=== PATIENT | female | born 1990 | race Caucasian/White ===

== ENCOUNTER 2016-08-15 15:21 | Emergency (ER) | payer SELFPAY ==
--- NOTE | 2016-08-15 15:44 | ER Document Report ---
ED Medical Screen (RME) - General Chief Complaint: Neck Problem Stated Complaint: POSSIBLE FOREIGN OBJECT IN NECK Mode of Arrival: Ambulatory Information source: Patient Notes: 26 y/o F presents to ED requesting Xray of neck. Pt reports hx of IV drug use and states thinks has broken needle in left side of neck. States incident occurred approximately 6 months ago and has been encarcerated for the last 6 months and was recently released and has not been evaluated for this before. Denies pain, swelling, difficuly breathing or swallowing. I have greeted and performed a rapid initial assessment of this patient. A comprehensive ED assessment and evaluation of the patient, analysis of test results and completion of the medical decision making process will be conducted by additional ED providers. TRAVEL OUTSIDE OF THE [place] IN LAST 30 DAYS: No - Related Data Allergies/Adverse Reactions: Penicillins Allergy (Severe, Verified 06/29/15 10:58) Hives,anaphylaxis Sulfa (Sulfonamide Antibiotics) Allergy (Severe, Verified 06/29/15 10:58) Hives,anaphylaxis Past Medical History Pulmonary Medical History: Reports: Hx Bronchitis Musculoskeltal Medical History: Denies Hx Fibromyalgia, Reports Hx Musculoskeletal Trauma Psychiatric Medical History: Denies: Hx Bipolar Disorder, Hx Depression, Hx Post Traumatic Stress Disorder , Hx Schizophrenia Traumatic Medical History: Reports: Hx Fractures - lt foot sx 2009 Infectious Medical History: Denies: Hx HIV Past Surgical History: Reports: Hx Section, Hx Oral Surgery, Hx Orthopedic Surgery - Left foot surgery - Immunizations Immunizations up to date: Yes Hx Diphtheria, Pertussis, Tetanus Vaccination: Yes Physical Exam - Vital signs Vitals: Temp Pulse Resp BP Pulse Ox 98.1 F 75 16 122/63 96 08/15/16 15:37 08/15/16 15:37 08/15/16 15:37 08/15/16 15:37 08/15/16 15:37 Course - Vital Signs Vital signs: Temp Pulse Resp BP Pulse Ox 98.1 F 75 16 122/63 96 08/15/16 15:37 08/15/16 15:37 08/15/16 15:37 08/15/16 15:37 08/15/16 15:37
--- NOTE | 2016-08-15 17:44 | ER Document Report ---
ED Neck/Back Problem - General Chief Complaint: Neck Problem Stated Complaint: POSSIBLE FOREIGN OBJECT IN NECK Mode of Arrival: Ambulatory Information source: Patient Notes: 26 y/o F presents to ED requesting Xray of neck. Pt reports hx of IV drug use and states thinks has broken needle in left side of neck. States incident occurred approximately 6 months ago and has been encarcerated for the last 6 months and was recently released and has not been evaluated for this before. Reports was evaluated by primary care provider earlier this week and was referred to ED for an x-ray. Denies fever, pain, swelling, redness of breath, difficuly breathing or swallowing. TRAVEL OUTSIDE OF THE [place] IN LAST 30 DAYS: No - HPI Onset: Chronic Pain Level: Denies Recent injury: No Recently seen / treated by doctor: Yes - Related Data Allergies/Adverse Reactions: Penicillins Allergy (Severe, Verified 06/29/15 10:58) Hives,anaphylaxis Sulfa (Sulfonamide Antibiotics) Allergy (Severe, Verified 06/29/15 10:58) Hives,anaphylaxis Past Medical History - General Information source: Patient - Social History Smoking Status: Current Every Day Smoker Frequency of alcohol use: None Drug Abuse: None Lives with: Family Family History: Malignancy Patient has suicidal ideation: No Patient has homicidal ideation: No Pulmonary Medical History: Reports: Hx Bronchitis Renal/ Medical History: Denies: Hx Peritoneal Dialysis Musculoskeltal Medical History: Denies Hx Fibromyalgia, Reports Hx Musculoskeletal Trauma Psychiatric Medical History: Denies: Hx Bipolar Disorder, Hx Depression, Hx Post Traumatic Stress Disorder , Hx Schizophrenia Traumatic Medical History: Reports: Hx Fractures - lt foot sx 2009 Infectious Medical History: Denies: Hx HIV Past Surgical History: Reports: Hx Section, Hx Oral Surgery, Hx Orthopedic Surgery - Left foot surgery - Immunizations Immunizations up to date: Yes Hx Diphtheria, Pertussis, Tetanus Vaccination: Yes Review of Systems - Review of Systems Constitutional: No symptoms reported EENT: See HPI Cardiovascular: No symptoms reported Respiratory: No symptoms reported Gastrointestinal: No symptoms reported Genitourinary: No symptoms reported Female Genitourinary: No symptoms reported Musculoskeletal: No symptoms reported Skin: No symptoms reported Hematologic/Lymphatic: No symptoms reported Neurological/Psychological: No symptoms reported -: Yes All other systems reviewed and negative Physical Exam - Vital signs Vitals: Temp Pulse Resp BP Pulse Ox 98.1 F 75 16 122/63 96 08/15/16 15:37 08/15/16 15:37 08/15/16 15:37 08/15/16 15:37 08/15/16 15:37 Interpretation: Normal - General General appearance: Appears well, Alert In distress: None - HEENT Head: Normocephalic, Atraumatic Eyes: Normal Conjunctiva: Normal Extraocular movements intact: Yes Eyelashes: Normal Pupils: PERRL Ears: Normal External canal: Normal Tympanic membrane: Normal Nasal: Normal Mouth/Lips: Normal Mucous membranes: Normal, Moist Pharynx: Normal. No: Blood in hypopharynx, Erythema, Exudate, Peritonsillar abscess, Post nasal drainage, Retropharyngeal abscess, Tonsillar hypertrophy, Uvular edema, Potential airway comprom., Other Neck: Normal, Other - Superficial old healed skin scar/[place] to bilateral lower neck likely from reported iv drug use. No swelling, crepitus, erythema, warmth, or palpable foreign body.. No: Anterior cervical chain, Posterior cervical chain, Lymphadenopathy, Meningismus, Neck mass, Subcutaneous emphysema - Respiratory Respiratory status: No respiratory distress Chest status: Nontender Breath sounds: Normal - CTAB Chest palpation: Normal - Cardiovascular Rhythm: Regular Heart sounds: Normal auscultation Murmur: No Pulses: Normal: Radial, Posterior tibial, Dorsalis pedis Normal capillary refill: Yes - Abdominal Inspection: Normal Distension: No distension Bowel sounds: Normal Tenderness: Nontender Organomegaly: No organomegaly - Back Back: Normal, Nontender - Extremities General upper extremity: Normal inspection, Nontender, Normal color, Normal ROM , Normal strength, Normal temperature General lower extremity: Normal inspection, Nontender, Normal color, Normal ROM , Normal strength, Normal temperature, Normal weight bearing - Neurological Neuro grossly intact: Yes Cognition: Normal Orientation: AAOx4 Ros[place] Coma Scale Eye Opening: Spontaneous Huntington Coma Scale Verbal: Oriented Huntington Coma Scale Motor: Obeys Commands Huntington Coma Scale Total: 15 Speech: Normal Motor strength normal: LUE, RUE, LLE, RLE Sensory: Normal - Psychological Associated symptoms: Normal affect, Normal mood - Skin Skin Temperature: Warm Skin Moisture: Dry Skin Color: Normal Course - Re-evaluation Re-evalutation: 08/15/16 17:43 She hemodynamically stable, in no distress. X-rays show bilateral lower neck/ supraclavicular region metallic foreign bodies in the resemblance of small gauge needles without any other abnormalities. Patient denies any symptoms or complaints, has no suggestion of acute complication from foreign bodies and appears stable for discharge at this time. Patient states has appointment with primary care provider for follow-up of x-rays in 2 days which she agrees to keep. Home care, follow-up, ED return precautions discussed with patient who verbalized understanding and agrees with plan. - Vital Signs Vital signs: Temp Pulse Resp BP Pulse Ox 98.5 F 78 16 120/69 98 08/15/16 18:05 08/15/16 18:05 08/15/16 18:05 08/15/16 18:05 08/15/16 18:05 - Diagnostic Test Radiology reviewed: Image reviewed, Reports reviewed Discharge - Discharge Clinical Impression: Foreign body of neck, superficial Qualifiers: Encounter type: initial encounter Qualified Code(s): S10.95XA - Superficial foreign body of unspecified part of neck, initial encounter Condition: Stable Disposition: HOME, SELF-CARE Instructions: Retained Subcutaneous Foreign Object ([facility]) Additional Instructions: Keep your appointment and follow-up with your primary care provider in 2 days as discussed. Return to the emergency department for any worsening symptoms or concerns.
[2016-08-15 18:09] VITALS: BP 120/69
== END 2016-08-15 18:10 | disposition home or self-care (01) ==
LOC: ER 15:21
DX: S10.95XA Superficial foreign body of unspecified part of neck, initial encounter (principal); W45.8XXA Other foreign body or object entering through skin, initial encounter; F17.200 Nicotine dependence, unspecified, uncomplicated; Z88.0 Allergy status to penicillin; Z88.2 Allergy status to sulfonamides
CPT/HCPCS: 70360; 99283

== ENCOUNTER 2017-04-16 19:21 | Outpatient (CLI) | payer MEDICAID ==
[2017-04-16] MEDS ORDERED: HYDROXYZINE PAMOATE 50 MG CAPSULE PO ONE (20:00)
[2017-04-16] MEDS ORDERED: HYDROXYZINE PAMOATE 50 MG CAPSULE ONE (20:01)
[2017-04-16] MEDS ORDERED: ACETAMINOPHEN 325 MG TABLET PO ONE (21:08)
[2017-04-16] MEDS ORDERED: CITRIC ACID/SODIUM CITRATE ORAL SOLN 15 ML UDCUP ONE (21:24)
[2017-04-16] MEDS ORDERED: MISOPROSTOL 0.2 MG TABLET ONE (21:25)
[2017-04-16] MEDS ORDERED: OXYTOCIN/NORMAL SALINE 0 UNIT/0 ML RTUINJ ONE (21:25)
[2017-04-16] MEDS ORDERED: LIDOCAINE 1% INJ-PF (10 MG/ML) 30 ML SDV ONE (21:25)
[2017-04-16] MEDS ORDERED: CEFAZOLIN 2 GM/D5W RTU 0 GM/0 ML RTUPB IV ONE (21:25)
--- NOTE | 2017-04-16 21:32 | RADIOLOGY REPORT (SQ) ---
EXAM DESCRIPTION: U/S OB LIMITED COMPLETED DATE/TIME: 04/16/2017 9:22 pm REASON FOR STUDY: cervical lengthplacentalocation,r/oabruption COMPARISON: None. TECHNIQUE: Limited transabdominal grayscale ultrasound for evaluation of specific requested obstetri jose parameters. LIMITATIONS: None. FINDINGS: CERVICAL LENGTH: The cervix appears open with a hyperechoic area possibly representing a b lood clot. FHR: 147 beats per minute. PRESENTATION: Cephalic. OTHER: No other significant findings. IMPRESSION: LIMITED OBSTETRICAL ULTRASOUND WITH MEASURED PARAMETERS DELINEATED ABOVE. TECHNICAL DOCUMENTATION: JOB ID: [id number] [employer]- All Rights Reserved
[2017-04-16 21:34] LABS: APPEARANCE,URINE SLIGHTLY-CLOUDY; BILIRUBIN,URINE NEGATIVE (NEGATIVE); GLUCOSE, URINE NEGATIVE (NEGATIVE); KETONES,URINE NEGATIVE (NEGATIVE); LEUKOCYTE ESTERASE,URINE SMALL (NEGATIVE); NITRITE,URINE NEGATIVE (NEGATIVE); PROTEIN,URINE NEGATIVE (NEGATIVE); URINE SPECIFIC GRAVITY 1.003; UROBILINOGEN,URINE NEGATIVE mg/dL (<2.0)
[2017-04-16 21:41] LABS: URINE BARBITURATES SCREEN NEGATIVE; URINE METHADONE SCREEN NEGATIVE; URINE PHENCYCLIDINE SCREEN NEGATIVE
[2017-04-16] MEDS ORDERED: BETAMET ACET/BETAMET NA INJ 6 MG/1 ML ONE (21:48)
[2017-04-16] MEDS ORDERED: MAGNESIUM SULFATE 4 GM/100 ML RTUPB IV ONE ×2 (21:48→22:25)
[2017-04-16 21:56] LABS: URINE OPIATES LOW UNCONFIRMED POSITIVE
[2017-04-16] MEDS ORDERED: MAGNESIUM SULFATE 20 GM/500 ML RTUINJ IV PRN (22:25)
[2017-04-16] MEDS ORDERED: BETAMET ACET/BETAMET NA INJ 6 MG/1 ML IM ONE (22:30)
[2017-04-16] MEDS ORDERED: IBUPROFEN 800 MG TABLET ONE (22:34)
[2017-04-16 22:37] LABS: ABSOLUTE EOSINOPHILS # (AUTO) 0.1 10^3/uL (0.0-0.6); ABSOLUTE LYMPHOCYTES (AUTO) 2.2 10^3/uL (0.5-4.7); ABSOLUTE MONOCYTES (AUTO) 1.5 10^3/uL (0.1-1.4); ABSOLUTE NEUT (AUTO) 11.8 10^3/uL (1.7-8.2); BASOPHILS % (AUTO) 0.2 % (0-2); EOSINOPHILS % (AUTO) 0.7 % (0-6); HEMATOCRIT 27.8 % (36.0-47.0); HEMOGLOBIN 9.2 g/dL (12.0-15.5); HGB HCT DIFFERENCE -0.2; LYMPHOCYTES % (AUTO) 14.2 % (13-45); MEAN CORPUSCULAR HEMOGLOBIN 25.4 pg (27.0-33.4); MEAN CORPUSCULAR HGB CONC 33.1 g/dL (32.0-36.0); MEAN CORPUSCULAR VOLUME 77 fl (80-97); MONOCYTES % (AUTO) 9.8 % (3-13); RED BLOOD COUNT 3.62 10^6/uL (3.72-5.28); RED CELL DISTRIBUTION WIDTH 14.7 % (11.5-14.0); SEGMENTED NEUTROPHILS % (AUTO) 75.1 % (42-78); WHITE BLOOD COUNT 15.7 10^3/uL (4.0-10.5)
--- NOTE | 2017-04-16 22:49 | PDOC TRANSFER SUMMARY ---
General - Transfer Diagnosis (1) Breech presentation Is this a current diagnosis for this admission?: Yes (2) Delivery by elective caesarean section Is this a current diagnosis for this admission?: Yes (3) Heroin abuse Is this a current diagnosis for this admission?: Yes (4) Insufficient care Is this a current diagnosis for this admission?: Yes (5) Methadone maintenance therapy patient Is this a current diagnosis for this admission?: Yes (6) Is this a current diagnosis for this admission?: Yes - Transfer Medications Home Medications: No Home Medications 04/16/17 Transfer Medications: Current Medications Betamethasone Acet/Betameth SodPhos (Celestone Inj 6 Mg/1 Ml) 6 mg IM DAILY MERISSA Stop: 04/16/17 22:31 Magnesium Sulfate (Magnesium Sulfate Rtu 20 Gm/500 Ml Premix) 20 gm in 500 mls @ 50 mls/hr IV CONTINUOUS PRN PRN Reason: THIS MED IS NOT "PRN" Stop: 05/16/17 22:24 Magnesium Sulfate (Magnesium Sulfate Rtu 4 Gm/100 Ml Premix Bag) 4 gm in 100 mls @ 300 mls/hr IV NOW ONE Stop: 04/16/17 22:44 - Allergies Allergies/Adverse Reactions: Penicillins Allergy (Severe, Verified 04/16/17 19:44) Hives,anaphylaxis Sulfa (Sulfonamide Antibiotics) Allergy (Severe, Verified 04/16/17 19:44) Hives,anaphylaxis Hospital Course Hospital Course: 27 6/7 wks presented with c/o abdominal pain and bleeding. sono revealed <1 cm cervix length. digital exam 1-2 cm/thick/high. Physical Exam Vital Signs: Intake & Output 04/15/17 04/16/17 04/17/17 06:59 06:59 06:59 Weight 80 kg Results Laboratory Results: 04/16/17 22:17 04/16/17 04/16/17 20:53 22:17 WBC 15.7 H RBC 3.62 L Hgb 9.2 L Hct 27.8 L MCV 77 L MCH 25.4 L MCHC 33.1 RDW 14.7 H Plt Count 328 Seg Neutrophils % 75.1 Lymphocytes % 14.2 Monocytes % 9.8 Eosinophils % 0.7 Basophils % 0.2 Absolute Neutrophils 11.8 H Absolute Lymphocytes 2.2 Absolute Monocytes 1.5 H Absolute Eosinophils 0.1 Absolute Basophils 0.0 Urine Color YELLOW Urine Appearance SLIGHTLY-CLOUDY Urine pH 7.0 Ur Specific [place] 1.003 Urine Protein NEGATIVE Urine Glucose (UA) NEGATIVE Urine Ketones NEGATIVE Urine Blood LARGE H Urine Nitrite NEGATIVE Ur Leukocyte Esterase SMALL H Urine WBC (Auto) 9 Urine RBC (Auto) 3 Impressions: Obstetrics Ultrasound 04/16/17 00:00 IMPRESSION: LIMITED OBSTETRICAL ULTRASOUND WITH MEASURED PARAMETERS DELINEATED ABOVE. Plan Time Spent: Greater than 30 Minutes - transfer to [facility] L&D department. Dr Cuevas accepting physician. Mag Sulfate, ACS protocol and GBS antibiotics initiated here prior to transfer.
[2017-04-16] MEDS ORDERED: GENTAMICIN SULFATE INJ 80 MG/2 ML VIAL IV ONE (22:50)
[2017-04-16] MEDS ORDERED: RINGERS SOLUTION,LACTATED 1,000 ML IV ONE (23:14)
[2017-04-16] MEDS ORDERED: RINGERS SOLUTION,LACTATED 1,000 ML IV PRN ×2 (23:15→23:21)
[2017-04-16 23:34] LABS: ADD HIVPANEL? NO; HIV (1 AND 2) ANTIBODY NEGATIVE (NEGATIVE)
[2017-04-18 11:21] LABS: HEPATITIS C VIRUS AB >11.0 s/co ratio (0.0-0.9)
== END 2017-04-17 00:28 | disposition short-term general hospital (02) ==
LOC: LC 19:21
PROVIDERS: ATTEND Obstetrics & Gynecology
PROC: 4A1HXCZ Monitoring of Products of Conception, Cardiac Rate, External Approach (ICD-10-PCS; principal; 2017-04-16)
DX: O60.02 Preterm labor without delivery, second trimester (principal); Z3A.23 23 weeks gestation of pregnancy
CPT/HCPCS: 96372; 86900; 86901; 36415; 86850; 85025; 86762; 86592; 81001; 87340; 86701; 80307; 86803; 86804; 76815; 59899; G6056; J3475; J3490 ×2; 80361; J0690; J0702; J2590

== ENCOUNTER 2017-10-11 10:50 | Emergency (ER) | payer SELFPAY ==
[2017-10-11] MEDS ORDERED: LIDOCAINE 5% (700 MG) TRANSDERMAL ADH..PATCH TP ONE (12:06)
[2017-10-11] MEDS ORDERED: KETOROLAC TROMETHAMINE INJ/PF 30 MG/1 ML SDV IM ONE (12:06)
--- NOTE | 2017-10-11 12:08 | ER Document Report ---
HPI - HPI Pain Level: 5 Notes: Patient is a 27-year-old female with no significant past medical history who presents to the ED complaining of upper back pain is 1 month. Patient states that the pain was on the right side then moved to her left over time went away and now returned near the middle of her back. Patient states that the pain does not radiate. Patient states that the pain feels like a spasming. Patient does not recall any injury. She denies any IV drug use, but does admit to smoking. Denies any injections or procedures to her back. Denies any previous history of spinal abscess. Patient is eating and drinking without any difficulties. She is urinating normally having normal bowel movements. Patient does not have any abdominal pain. No other concerns or complaints at this time. Denies any headache, fever, neck pain, URI, sore throat, chest pain , palpitations, syncope, cough, shortness of breath, wheeze, dyspnea, abdominal pain, nausea/vomiting/diarrhea, urinary retention, dysuria, hematuria, loss of control of bowel or bladder, numbness/tingling, saddle anesthesia, muscle paralysis/weakness, or rash. - ROS Systems Reviewed and Negative: Yes All other systems reviewed and negative - CONSTITUTIONAL Constitutional: DENIES: Fever, Chills - REPRODUCTIVE Reproductive: REPORTS: : Past Medical History - Social History Smoking Status: Current Every Day Smoker Frequency of alcohol use: None Drug Abuse: None Family History: Malignancy Patient has suicidal ideation: No Patient has homicidal ideation: No Pulmonary Medical History: Reports: Hx Bronchitis Renal/ Medical History: Denies: Hx Peritoneal Dialysis Musculoskeltal Medical History: Denies Hx Fibromyalgia, Reports Hx Musculoskeletal Trauma Psychiatric Medical History: Denies: Hx Bipolar Disorder, Hx Depression, Hx Post Traumatic Stress Disorder , Hx Schizophrenia Traumatic Medical History: Reports: Hx Fractures - lt foot sx 2009 Infectious Medical History: Denies: Hx HIV Past Surgical History: Reports: Hx Section, Hx Oral Surgery, Hx Orthopedic Surgery - Left foot surgery - Immunizations Immunizations up to date: Yes Hx Diphtheria, Pertussis, Tetanus Vaccination: Yes Vertical Provider Document - CONSTITUTIONAL Agree With Documented VS: Yes Notes: PHYSICAL EXAMINATION: GENERAL: Well-appearing, well-nourished and in no acute distress. LUNGS: Breath sounds clear to auscultation bilaterally and equal. No wheezes rales or rhonchi. HEART: Regular rate and rhythm without murmurs, rubs, gallops. ABDOMEN: Soft, nontender, nondistended abdomen. No guarding, no rebound. No masses appreciated. Normal bowel sounds present. No CVA tenderness bilaterally. No pulsatile mass Musculoskeletal: LE's b/l: FROM to passive/active. Strength 5+/5. No deficits noted. No bony tenderness of extremities. Stretching the arm across the chest does elicit the pain felt to her back ("stretches/pulling"). Back: FROM to passive/active. Strength 5+/5. No vertebral point tenderness, stepoffs, or deformities. No other bony tenderness, erythema, swelling, or ecchymosis. SLR negative b/l. + mild tenderness to the T-paraspinal mm b/l. Mild spasming. No SI jt tenderness. No foot drop Extremities: No cyanosis, clubbing, or edema b/l. Peripheral pulses 2+. Capillary refill less than 2 seconds. NEUROLOGICAL: Normal speech, normal gait. Normal sensory, motor exams. Reflexes 2+ b/l. PSYCH: Normal mood, normal affect. SKIN: Warm, Dry, normal turgor, no rashes or lesions noted. - INFECTION CONTROL TRAVEL OUTSIDE OF THE [place] IN LAST 30 DAYS: No - RESPIRATORY O2 Sat by Pulse Oximetry: 97 Course - Re-evaluation Re-evalutation: 10/11/17 12:10 Patient is an afebrile, well-hydrated, 27-year-old female who presents to the ED with thoracic paraspinal back pain. Vitals are acceptable. PE is otherwise unremarkable for any focal neurological deficits. I suspect that this is a back strain. No labs or imaging warranted at this time based on H&P. Lidoderm patch was applied and Toradol given. Low suspicion for any meningitis, fracture , expanding/ruptured AAA, cauda equina syndrome, epidural mass lesion/abscess, herniated disc causing severe spinal stenosis, or other systemic infection at this time. Patient is aware that her condition can change from initial presentation and that she needs monitor symptoms closely for any acute changes. I will send her home with a prescription for naproxen and baclofen. Recommend conservative measures for symptoms. Recheck with your PCM in 3-5 days. Consider consult orthopedics/physical therapy. Return to the ED with any worsening/concerning symptoms otherwise as reviewed discharge. Patient is in agreement. - Vital Signs Vital signs: Temp Pulse Resp BP Pulse Ox 98.6 F 85 17 120/64 97 10/11/17 10:56 10/11/17 10:56 10/11/17 10:56 10/11/17 10:56 10/11/17 10:56 Discharge - Discharge Clinical Impression: Thoracic back pain Qualifiers: Chronicity: acute Back pain laterality: bilateral Qualified Code(s): M54.6 - Pain in thoracic spine Condition: Stable Disposition: HOME, SELF-CARE Instructions: Ice Packs ([facility]), Muscle Relaxers ([facility]), Muscle Strain ([facility]), Stretching Exercises for the Back ([facility]), Upper Back Strain ([facility]), Warm Packs ( [facility]) Additional Instructions: Rest, Ice Tylenol/ibuprofen as needed Light stretches daily Strength exercises as able Moist heat and massage may help F/u with your PCP in 3-5 days for a recheck Consider consult(s) with Orthopedics/physical therapy for ongoing/worsening symptoms Return to the ED with any worsening symptoms and/or development of fever, headache, chest pain, palpitations, syncope, shortness of breath, trouble breathing, abdominal pain, n/v/d, blood in stool/urine, loss of control of bowel /bladder, urinary retention, muscle weakness/paralysis, saddle anesthesia, numbness/tingling, or other worsening symptoms that are concerning to you. Prescriptions: Baclofen [Baclofen 10 mg Tablet] 5 - 10 mg PO BID PRN #10 tablet PRN Reason: Naproxen 500 mg PO BID PRN #30 tablet PRN Reason: Forms: Smoking Cessation Education Referrals: [facility] ([facility]) [Provider Group] - Follow up as needed
[2017-10-11 12:34] VITALS: BP 123/68
== END 2017-10-11 12:43 | disposition home or self-care (01) ==
LOC: ER 10:50
DX: O99.89 Other specified diseases and conditions complicating pregnancy, childbirth and the puerperium (principal); M54.6 Pain in thoracic spine; O99.330 Smoking (tobacco) complicating pregnancy, unspecified trimester; Z3A.00 Weeks of gestation of pregnancy not specified
CPT/HCPCS: 99283; 96372; J1885

== ENCOUNTER 2018-02-02 00:17 | Emergency (ER) | payer SELFPAY ==
[2018-02-02] MEDS ORDERED: RINGERS SOLUTION,LACTATED 2,000 ML IV ONE (00:34)
[2018-02-02] MEDS ORDERED: CEFEPIME 2 GM/D5W RTU 2 GM/50 ML RTUPB IV ONE (00:34)
[2018-02-02] MEDS ORDERED: VANCOMYCIN HCL INJ 1000 MG VIAL IV ONE (00:34)
--- NOTE | 2018-02-02 01:04 | ER Document Report ---
ED General - General Stated Complaint: WEAKNESS Time Seen by Provider: 02/02/18 00:20 Cannot obtain history due to: Unstable vital signs, Altered mental status Notes: Patient is a 27-year-old female with a past medical history of hepatitis C, former IV drug use per her report but none in the last 2 years per her report, who presents lethargic, listless, confused and extremely ill in appearance. Patient is unable to provide any meaningful history. Her grandmother at the bedside reports that the patient has been increasingly unwell over the last 3-4 days, has not gotten out of bed and that she has been bringing her bucket to urinate in. The patient has no other known chronic medical problems. She is not currently taking any medications. No additional history can be obtained secondary to the patient's critical condition. TRAVEL OUTSIDE OF THE [place] IN LAST 30 DAYS: No - Related Data Allergies/Adverse Reactions: Penicillins Allergy (Severe, Verified 04/16/17 19:44) Hives,anaphylaxis Sulfa (Sulfonamide Antibiotics) Allergy (Severe, Verified 04/16/17 19:44) Hives,anaphylaxis Past Medical History - General Information source: Relative Cannot obtain history due to: Unstable vital signs, Altered mental status - Social History Smoking Status: Current Every Day Smoker Frequency of alcohol use: None Drug Abuse: Heroin - Patient denies current use Lives with: Family Family History: Malignancy Pulmonary Medical History: Reports: Hx Bronchitis Renal/ Medical History: Denies: Hx Peritoneal Dialysis Musculoskeltal Medical History: Denies Hx Fibromyalgia, Reports Hx Musculoskeletal Trauma Psychiatric Medical History: Denies: Hx Bipolar Disorder, Hx Depression, Hx Post Traumatic Stress Disorder , Hx Schizophrenia Traumatic Medical History: Reports: Hx Fractures - lt foot sx 2009 Infectious Medical History: Denies: Hx HIV Past Surgical History: Reports: Hx Section, Hx Oral Surgery, Hx Orthopedic Surgery - Left foot surgery - Immunizations Immunizations up to date: Yes Hx Diphtheria, Pertussis, Tetanus Vaccination: Yes Review of Systems - Review of Systems -: Yes ROS unobtainable due to patient's medical condition Physical Exam - Vital signs Vitals: Resp Pulse Ox 48 H 92 02/02/18 00:27 02/02/18 00:27 Interpretation: Hypotensive, Tachycardic, Tachypneic Notes: PHYSICAL EXAMINATION: GENERAL: Extremely sick in appearance, lethargic, listless confused HEAD: Atraumatic, normocephalic. EYES: Pupils equal round and reactive to light, extraocular movements intact, sclera anicteric, conjunctiva are normal. ENT: Extremely dry mucous membranes with cracking and opening of the soft palate as well as several areas of the tongue NECK: Normal range of motion, supple without lymphadenopathy LUNGS: scattered rales in all lung kulkarni more dominant on the right HEART: Regular tachycardia, soft systolic ejection murmur ABDOMEN: Soft, nontender, normoactive bowel sounds. No guarding, no rebound. No masses appreciated. EXTREMITIES: no pitting or edema. No cyanosis. NEUROLOGICAL: No focal neurological deficits. Moves all extremities spontaneously and on command. PSYCH: Listless, confused SKIN: Cool to touch, poor turgor, multiple scabbing lesions over the bilateral upper and lower extremities Course - Re-evaluation Re-evalutation: 02/02/18 01:02 Documentation is necessarily delayed as I have been at this patient's bedside continuously for the past 25 minutes. In summary this patient presented with acute septic shock, hypotensive, tachycardic, listless, tachypneic, hypoxemic, and confused. She is diffusely icteric, profoundly dehydrated on examination, multiple scabbed sores covering multiple areas of her body. She is a former IV drug user although denies adamantly that she has any current use in the past 2 years. Due to her former IV drug use, I was unable to locate any peripheral IV sites nor any nurses including the external jugular veins. Moreover, the patient was so profoundly ill that multiple points of access were required. I therefore emergently placed a right femoral central line under sterile conditions. As soon as of cyst placed, 2 L of lactated Ringer's were open wide. 2 g of cefepime have been initiated. Bedside pleural ultrasound shows trace B-lines. IVC examination shows severe volume depletion. Patient is severely ill, appears to be in advanced sepsis. Broad-spectrum antibiotics have been initiated, aggressive IV fluid hydration will be initiated, full labs including cultures, Zheng catheter with temperature probe and appropriate labs will be placed. Chest x-ray will be obtained. Patient will require frequent and regular reassessments that she is critically ill and high risk for at this time. 02/02/18 01:51 Patient remains critically ill, overall appears improved after receiving a total of 3 L of fluid although remains hypotensive and will require norepinephrine infusion to be initiated. Laboratories are returning showing a white count or platelets like 7markedly elevated leukocytosis, anemia at 7 and extremely low platelets. DIC panel has been sent. Patient is however more alert, oriented, speaking to me more coherently. Will also order 2 units of packed red blood cells. 02/02/18 01:54 I discussed this case with who agrees with the probable diagnosis of endocarditis with associated multifocal pneumonia and pyelonephritis. Patient has associated DIC has fibrogenic is low, awaiting fibrinogen split products and d-dimer. Patient is currently on 10 of norepinephrine, map 69. She is receiving her fourth liter of IV fluids. Awaiting transfer and will continue to reassess at regular intervals. 02/02/18 0220 On reassessment patient continues to be much more alert and now oriented x3. Her map continues to hold above 65 on 10 of norepinephrine. Repeated physical examination does not show any deterioration of her respiratory status. No indication for an airway intervention. Will continue to reassess at regular intervals. 02/02/18 03:52 Patient's laboratories do show positive opiate screen. Neither I nor EMS administered any opiates to this patient. This is consistent with the patient having been untruthful regarding her ongoing IV drug abuse and further is my suspicion that the likely primary source of her presentation is endocarditis. Awaiting transport. 02/02/18 04:37 Patient remains in guarded condition although continues to feel and appear overall clinically improved particularly relative to initial assessment. Awaiting transport. - Vital Signs Vital signs: Temp Pulse Resp BP Pulse Ox 97.7 F 117 H 34 H 106/64 100 02/02/18 04:31 02/02/18 03:21 02/02/18 04:31 02/02/18 04:31 02/02/18 04:31 - Laboratory Result Diagrams: 02/02/18 00:59 02/02/18 00:59 Laboratory results interpreted by me: 02/02/18 02/02/18 02/02/18 00:17 00:59 00:59 WBC 25.5 H RBC 3.09 L Hgb 7.0 L Hct 21.2 L MCV 69 L MCH 22.7 L RDW 19.5 H Plt Count 15 L* Seg Neuts % (Manual) 88 H Band Neutrophils % 6 H Lymphocytes % (Manual) 3 L Abs Neuts (Manual) 24.0 H PT APTT Fibrinogen Fibrin Degrad Products D-Dimer VBG pH VBG pCO2 VBG HCO3 Sodium 122.2 L Potassium 3.5 L Chloride 83 L Carbon Dioxide 17 L Anion Gap 22 H BUN 30 H Lactic Acid Calcium 7.3 L Direct Bilirubin 0.6 H AST 65 H Alkaline Phosphatase 153 H Creatine Kinase < 20 L NT-Pro-B Natriuret Pep Albumin 2.3 L Urine Protein 30 H Urine Blood SMALL H Urine Urobilinogen 4.0 H Ur Leukocyte Esterase LARGE H Crossmatch 02/02/18 02/02/18 02/02/18 00:59 00:59 00:59 WBC RBC Hgb Hct MCV MCH RDW Plt Count Seg Neuts % (Manual) Band Neutrophils % Lymphocytes % (Manual) Abs Neuts (Manual) PT APTT Fibrinogen Fibrin Degrad Products D-Dimer VBG pH 7.48 H VBG pCO2 24.4 L VBG HCO3 17.6 L Sodium Potassium Chloride Carbon Dioxide Anion Gap BUN Lactic Acid 8.9 H Calcium Direct Bilirubin AST Alkaline Phosphatase Creatine Kinase NT-Pro-B Natriuret Pep 2850 H Albumin Urine Protein Urine Blood Urine Urobilinogen Ur Leukocyte Esterase Crossmatch 02/02/18 02/02/18 02/02/18 00:59 00:59 02:26 WBC RBC Hgb Hct MCV MCH RDW Plt Count Seg Neuts % (Manual) Band Neutrophils % Lymphocytes % (Manual) Abs Neuts (Manual) PT 20.1 H APTT 37.6 H Fibrinogen 158 L Fibrin Degrad Products 10 TO 40 H D-Dimer 9.43 H VBG pH VBG pCO2 VBG HCO3 Sodium Potassium Chloride Carbon Dioxide Anion Gap BUN Lactic Acid Calcium Direct Bilirubin AST Alkaline Phosphatase Creatine Kinase NT-Pro-B Natriuret Pep Albumin Urine Protein Urine Blood Urine Urobilinogen Ur Leukocyte Esterase Crossmatch See Detail - Diagnostic Test Radiology reviewed: Image reviewed, Reports reviewed Radiology results interpreted by me: 02/02/18 03:49 Chest x-ray: Bilateral patchy infiltrates - EKG Interpretation by Me Additional EKG results interpreted by me: 02/02/18 03:49 Sinus tachycardia. Rate 121. Borderline ST elevations in the inferior leads. QTC is 481. Procedures - Central Line Right Femoral Consent obtained: No - Emergent Central line pre-insertion: Sterile PPE donned, Chloraprep applied, Sterile drapes applied Central line lumen type: Triple Anesthetic type: 1% Lidocaine mL's of anesthesia: 4 Ultrasound guided: Yes CM at insertion site: 30 Line secured with sutures: Yes Central line post-insertion: Blood return from lumens, Biopatch applied, Sutured , Sterile dressing applied Number of attempts: 1 Complications: No Critical Care Note - Critical Care Note Total time excluding time spent on procedures (mins): 78 Comments: Critical care time spent obtaining history from patient or surrogate, discussions with consultants, development of treatment plan with patient or surrogate, evaluation of patient's response to treatment, examination of patient , ordering and performing treatments and interventions, ordering and review of laboratory studies, re-evaluation of patient's condition, ordering and review of radiographic studies and review of old charts Discharge - Discharge Clinical Impression: Heroin abuse, Severe sepsis, Septic shock, DIC (disseminated intravascular coagulation), Multifocal pneumonia, Pyelonephritis, Probable endocarditis Anemia Qualifiers: Anemia type: unspecified type Qualified Code(s): D64.9 - Anemia, unspecified Condition: Critical Disposition: [facility] Referrals: BURKE MCCRAY PA-C [NO LOCAL MD] - Follow up as needed
[2018-02-02 01:22] LABS: VENOUS BLOOD BASE EXCESS -4.6 mmol/L; VENOUS BLOOD HCO3 17.6 mmol/L (20-32); VENOUS BLOOD PCO2 24.4 mmHg (35-63); VENOUS BLOOD PH 7.48 (7.30-7.42)
[2018-02-02 01:26] LABS: HEMATOCRIT 21.2 % (36.0-47.0); MEAN CORPUSCULAR HEMOGLOBIN 22.7 pg (27.0-33.4); MEAN CORPUSCULAR VOLUME 69 fl (80-97); RED BLOOD COUNT 3.09 10^6/uL (3.72-5.28); RED CELL DISTRIBUTION WIDTH 19.5 % (11.5-14.0); WHITE BLOOD COUNT 25.5 10^3/uL (4.0-10.5)
[2018-02-02 01:34] LABS: ALANINE AMINOTRANSFERASE 22 U/L (9-52); ALBUMIN 2.3 g/dL (3.5-5.0); ALKALINE PHOSPHATASE 153 U/L (38-126); ASPARTATE AMINO TRANSFERASE 65 U/L (14-36); BILIRUBIN,DIRECT 0.6 mg/dL (0.0-0.4); BILIRUBIN,TOTAL 0.9 mg/dL (0.2-1.3); BLOOD UREA NITROGEN 30 mg/dL (7-20); CALCIUM 7.3 mg/dL (8.4-10.2); GLUCOSE 108 mg/dL (75-110); POTASSIUM 3.5 mmol/L (3.6-5.0); TOTAL PROTEIN 6.5 g/dL (6.3-8.2)
[2018-02-02 01:39] LABS: CARBON DIOXIDE 17 mmol/L (22-30); CHLORIDE 83 mmol/L (98-107); SODIUM 122.2 mmol/L (137-145)
[2018-02-02 01:49] LABS: ABSOLUTE LYMPHOCYTES# (MANUAL) 0.8 10^3/uL (0.5-4.7); ABSOLUTE MONOCYTES # (MANUAL) 0.8 10^3/uL (0.1-1.4); ANION GAP 22 (5-19); BAND NEUTROPHILS % (MANUAL) 6 % (3-5); BASOPHILS % (MANUAL) 0 % (0-2); CREATINE KINASE < 20 U/L (30-135); EOSINOPHILS % (MANUAL) 0 % (0-6); LYMPHOCYTES % (MANUAL) 3 % (13-45); MONOCYTES % (MANUAL) 3 % (3-13); NUCLEATED RED BLOOD CELLS 4 /100 WBC (0); SEGMENTED NEUTROPHILS % (MAN) 88 % (42-78); TOTAL CELLS COUNTED 100
[2018-02-02] MEDS ORDERED: DEXTROSE 5%-WATER 250 ML with NOREPINEPHRINE BITARTRATE 4 MG IV PRN ×2 (01:53)
[2018-02-02 01:54] LABS: TOXIC GRANULATION 3+; TOXIC VACUOLATION PRESENT
[2018-02-02] MEDS ORDERED: NORMAL SALINE 250 ML IV PRN (01:54)
[2018-02-02 01:55] LABS: ANISOCYTOSIS 2+; HYPOCHROMASIA 2+; SCHISTOCYTES SLIGHT
[2018-02-02] MEDS ORDERED: NOREPINEPHRINE BITARTRATE INJ/PF 4 MG/4 ML SDV IV ONE (01:55)
[2018-02-02 01:56] LABS: PLATELET COMMENT DECREASED
[2018-02-02 01:57] LABS: PLATELET COUNT 15 10^3/uL (150-450)
[2018-02-02 01:59] LABS: NT PRO BNP 2850 pg/mL (<125)
[2018-02-02 02:03] LABS: TROPONIN I < 0.012 ng/mL
--- NOTE | 2018-02-02 02:11 | RADIOLOGY REPORT (SQ) ---
EXAM DESCRIPTION: XR CHEST 1 VIEW COMPLETED DATE/TME: 02/02/2018 00:33 CLINICAL HISTORY: 27 years Female, hypoxia, fever COMPARISON: 2.18.16 NUMBER OF VIEWS/TECHNIQUE: 1/AP FINDINGS: Adequate lung volume, moderate patchy opacities include the right upper lobe and left lower lobe normal cardiac silhouette, and intact bony thorax. IMPRESSION: Moderate multifocal pneumonia.
[2018-02-02 02:14] LABS: INTERNATIONAL RATION (INR) 1.63; PROTHROMBIN TIME 20.1 SEC (11.4-15.4)
[2018-02-02 02:15] LABS: FIBRINOGEN 158 mg/dL (209-497); PARTIAL THROMBOPLASTIN TIME 37.6 SEC (23.5-35.8)
[2018-02-02 02:18] LABS: APPEARANCE,URINE TURBID; BILIRUBIN,URINE NEGATIVE (NEGATIVE); COLOR,URINE AMBER; GLUCOSE, URINE NEGATIVE (NEGATIVE); KETONES,URINE NEGATIVE (NEGATIVE); LEUKOCYTE ESTERASE,URINE LARGE (NEGATIVE); NITRITE,URINE NEGATIVE (NEGATIVE); PROTEIN,URINE 30 mg/dL (NEGATIVE); URINE SPECIFIC GRAVITY 1.014
[2018-02-02 02:33] LABS: URINE AMPHETAMINES SCREEN NEGATIVE; URINE BARBITURATES SCREEN NEGATIVE; URINE BENZODIAZEPINES SCREEN NEGATIVE; URINE COCAINE SCREEN NEGATIVE; URINE MARIJUANA (THC) SCREEN NEGATIVE; URINE METHADONE SCREEN NEGATIVE; URINE PHENCYCLIDINE SCREEN NEGATIVE
[2018-02-02 02:35] LABS: D-DIMER 9.43 ug/mL (0.00-0.50)
[2018-02-02] MEDS ORDERED: RINGERS SOLUTION,LACTATED 1,000 ML IV ONE (02:35)
[2018-02-02 07:01] VITALS: BP 105/58
--- NOTE | 2018-02-02 10:30 | EKG REPORT ---
SEVERITY:- BORDERLINE ECG - SINUS TACHYCARDIA BORDERLINE ST ELEVATION, INFERIOR LEADS BORDERLINE PROLONGED QT INTERVAL : Confirmed by: Colby Guerrier MD 02-Feb-2018 10:29:40
[2018-02-04 14:56] LABS: PATH REVIEW PATHOLOGIST REVIEWED
== END 2018-02-02 05:27 | disposition short-term general hospital (02) ==
LOC: ER 00:17
PROC: 06HY33Z Insertion of Infusion Device into Lower Vein, Percutaneous Approach (ICD-10-PCS; principal; 2018-02-02)
DX: A41.9 Sepsis, unspecified organism (principal); R65.21 Severe sepsis with septic shock; D65 Disseminated intravascular coagulation [defibrination syndrome]; J18.9 Pneumonia, unspecified organism; N12 Tubulo-interstitial nephritis, not specified as acute or chronic; F11.10 Opioid abuse, uncomplicated; D64.9 Anemia, unspecified; R53.1 Weakness; R41.82 Altered mental status, unspecified; F17.200 Nicotine dependence, unspecified, uncomplicated
CPT/HCPCS: 93005; 99291; 99292; 96365; 96366; 96367; 96368; 86900; 86901; 36415; 87040; 87086; 36430; 86850; 82550; 84703; 85025; 85384; 85362; 85610; 85730; 87077; 87088; 80053; 81001; 84484; 87186; 80307; 86920; 85379; 82803; 83605; 83880; 71045; 93010; 36556; C1751; P9016; J3490; J7060; J7120; J3370; J0692

== ENCOUNTER 2018-02-28 04:27 | Emergency (ER) | payer SELFPAY ==
[2018-02-28] MEDS ORDERED: DEXTROSE 50%-WATER 25 GM/50 ML DISP.SYRIN IV ONE (04:31)
[2018-02-28] MEDS ORDERED: NORMAL SALINE 1000 ML 1,000 ML IV ONE (04:39)
[2018-02-28] MEDS ORDERED: VANCOMYCIN HCL INJ 1000 MG VIAL IV ONE (04:40)
[2018-02-28] MEDS ORDERED: CEFTRIAXONE INJ 1000 MG VIAL IV ONE (04:41)
--- NOTE | 2018-02-28 04:50 | ER Document Report ---
ED General - General Chief Complaint: Fever Stated Complaint: UNRESPONSIVE Time Seen by Provider: 02/28/18 04:30 Notes: Patient is a 27-year-old female who presents with complaint of drug overdose and fever. She apparently just left AMA from [facility]. She was admitted thereafter being treated for endocarditis. She left and then came home and then did more drugs. She is a history of IV drug abuse. Paramedics said that there was some form of pipe that she was using distorts of the had a white powder in it. She thought it was hurting but is really unclear exactly was. She was found apneic and blue. They gave her Narcan and she awoke very restless. Temp on the ambulance is 101.1. She was so restless that they were unable to get her the ambulance and therefore they did give her 5 mg of Haldol. Accucheck is 53. Is somewhat restless but is able to tell me that she did do some form of drugs today that she thought was heroin. She is also able to tell me that she did leave AMA from [facility] after being treated for several weeks for endocarditis and she has still been spiking fevers. TRAVEL OUTSIDE OF THE [place] IN LAST 30 DAYS: No - Related Data Allergies/Adverse Reactions: Penicillins Allergy (Severe, Verified 04/16/17 19:44) Hives,anaphylaxis Sulfa (Sulfonamide Antibiotics) Allergy (Severe, Verified 04/16/17 19:44) Hives,anaphylaxis Past Medical History - Social History Smoking Status: Unknown if Ever Smoked Frequency of alcohol use: Occasional Drug Abuse: Heroin Family History: Malignancy Pulmonary Medical History: Reports: Hx Bronchitis Renal/ Medical History: Denies: Hx Peritoneal Dialysis Musculoskeletal Medical History: Denies Hx Fibromyalgia, Reports Hx Musculoskeletal Trauma Psychiatric Medical History: Denies: Hx Bipolar Disorder, Hx Depression, Hx Post Traumatic Stress Disorder , Hx Schizophrenia Traumatic Medical History: Reports: Hx Fractures - lt foot sx 2009 Infectious Medical History: Denies: Hx HIV Past Surgical History: Reports: Hx Section, Hx Oral Surgery, Hx Orthopedic Surgery - Left foot surgery - Immunizations Immunizations up to date: Yes Hx Diphtheria, Pertussis, Tetanus Vaccination: Yes Review of Systems - Review of Systems Notes: My Normal Review Basic REVIEW OF SYSTEMS: CONSTITUTIONAL : Fevers EENT: Denies eye, ear, throat, or mouth pain or symptoms. Denies nasal or sinus congestion. CARDIOVASCULAR: Has endocarditis. RESPIRATORY: Was apneic upon arrival the paramedics. Start breathing again after receiving Narcan. GASTROINTESTINAL: Denies abdominal pain. Vomiting after receiving Narcan. GENITOURINARY: Denies difficulty urinating, painful urination, burning, frequency, or blood in urine. MUSCULOSKELETAL: Denies neck or back pain or joint pain or swelling. SKIN: Denies rash or skin lesions. NEUROLOGICAL: Was unconscious related to overdose. Denies headache. Denies weakness or paralysis or loss of use of either side. Denies problems with gait or speech. Denies sensory or motor loss. ALL OTHER SYSTEMS REVIEWED AND NEGATIVE. Physical Exam - Vital signs Vitals: Pulse Ox 100 02/28/18 04:33 - Notes Notes: General Appearance: Patient's is thrashing back and forth in the bed. She is hyperventilating. She continues to ask for water. She is nauseous and dry heaving. Vitals: reviewed, See vital signs table. Head: no swelling or tenderness to the head Eyes: PERRL, EOMI, Conjuctiva clear Mouth: Very dry mucous membranes. Throat: No tonsillar inflammation, No airway obstruction, No lymphadenopathy Neck: Supple, no neck tenderness Lungs: No wheezing, No rales, No rhonci, No accessory muscle use, good air exchange bilaterally. Heart: Tachycardic rate, Regular rythm, No murmur, no rub Abdomen: Normal BS, soft, No rigidity, No abdominal tenderness, No guarding, no rebound, no abdominal masses, no organomegaly Extremities: strength 5/5 in all extremities, good pulses in all extremities, patient has track deluca over all extremities. Skin: warm, dry, appropriate color, no rash Neuro: speech clear, oriented x 3, agitated affect, patient moving all 4 extremities on her own. Cranial nerves II through XII are grossly intact. Course - Re-evaluation Re-evalutation: 02/28/18 07:21 Patient did have a brief episode of hypotension which immediately responded to IV fluids. She is awake and alert answering questions appropriately. She is much more calm now. She is eating ice chips. She has good cap refill and good peripheral pulses. I have called [facility] for treatments for her. I am awaiting to hear back from PICU attending. I have ordered blood products for the patient. 02/28/18 07:22 02/28/18 07:48 I called and spoke with Dr. Monaco at [facility]. He is MICU attending. Agrees to accept the patient for transfer. I then spoke with the ICU nurse and gave her the nursing report. Patient is going to room CT 219. 02/28/18 07:53 - Vital Signs Vital signs: Temp Pulse Resp BP Pulse Ox 101.3 F H 29 H 97/55 L 100 02/28/18 07:44 02/28/18 07:44 02/28/18 07:44 02/28/18 07:44 - Laboratory Result Diagrams: 02/28/18 06:01 02/28/18 04:50 Laboratory results interpreted by me: 02/28/18 02/28/18 02/28/18 04:43 04:50 04:50 WBC RBC Hgb Hct MCHC RDW Plt Count Seg Neuts % (Manual) Band Neutrophils % Lymphocytes % (Manual) Monocytes % (Manual) Abs Neuts (Manual) PT APTT Carbon Dioxide 13 L Anion Gap 23 H Creatinine 0.47 L Glucose 115 H POC Glucose 119 H Lactic Acid 13.4 H Calcium 8.2 L Direct Bilirubin 0.6 H AST 70 H Lactate Dehydrogenase Albumin 2.8 L Urine Protein Urine Ketones Urine Ascorbic Acid Crossmatch 02/28/18 02/28/18 02/28/18 04:50 05:12 06:01 WBC 22.3 H RBC 2.17 L Hgb 6.1 L Hct 20.0 L MCHC 30.6 L RDW 24.4 H Plt Count 12 L* Seg Neuts % (Manual) 93 H Band Neutrophils % 1 L Lymphocytes % (Manual) 4 L Monocytes % (Manual) 2 L Abs Neuts (Manual) 21.0 H PT 24.9 H APTT 40.8 H Carbon Dioxide Anion Gap Creatinine Glucose POC Glucose Lactic Acid Calcium Direct Bilirubin AST Lactate Dehydrogenase Albumin Urine Protein 100 H Urine Ketones TRACE H Urine Ascorbic Acid 20 H Crossmatch 02/28/18 02/28/18 06:01 07:02 WBC RBC Hgb Hct MCHC RDW Plt Count Seg Neuts % (Manual) Band Neutrophils % Lymphocytes % (Manual) Monocytes % (Manual) Abs Neuts (Manual) PT APTT Carbon Dioxide Anion Gap Creatinine Glucose POC Glucose Lactic Acid Calcium Direct Bilirubin AST Lactate Dehydrogenase 843 H Albumin Urine Protein Urine Ketones Urine Ascorbic Acid Crossmatch See Detail - EKG Interpretation by Me Additional EKG results interpreted by me: 02/28/18 04:52 EKG is reviewed and interpreted by me. EKG shows sinus rhythm with rate of 150 bpm. A lot of baseline artifact this patient's is hyperventilating and will not stay still. LA interval and QRS duration QTc intervals are within normal range. Procedures - Central Line Left Femoral Consent obtained: Yes Central line pre-insertion: Chloraprep applied, Sterile drapes applied Central line lumen type: Triple Ultrasound guided: Yes Line secured with sutures: Yes Central line post-insertion: Blood return from lumens, Biopatch applied, Sutured , Sterile dressing applied Number of attempts: 1 Complications: No Critical Care Note - Critical Care Note Total time excluding time spent on procedures (mins): 90 Comments: Care time for this patient is only 90 minutes due to frequent re-evaluations, management of blood pressure, management of severe sepsis, management of severe anemia and thrombocytopenia.
[2018-02-28] MEDS ORDERED: ACETAMINOPHEN 325 MG TABLET ONE (05:23)
--- NOTE | 2018-02-28 05:28 | RADIOLOGY REPORT (SQ) ---
EXAM DESCRIPTION: XR CHEST 1 VIEW COMPLETED DATE/TME: 02/28/2018 04:40 CLINICAL HISTORY: 27 years Female, fever COMPARISON: 7.7.18 NUMBER OF VIEWS/TECHNIQUE: 1/AP FINDINGS: Adequate lung volume, new moderate rounded patchy opacity of the right lower lobe, recurrent/worsened mild/moderate mixed streaky and patchy opacity of the left lower lung field, mildly enlarged cardiac silhouette, and intact bony thorax. IMPRESSION: Moderate bilateral lower lobar pneumonia. Interval worsening/recurrence. Recommend CR/CT surveillance including at 7-12 weeks following initiation of clinically warranted therapy.
[2018-02-28 05:40] LABS: ALANINE AMINOTRANSFERASE 23 U/L (9-52); ALBUMIN 2.8 g/dL (3.5-5.0); ALKALINE PHOSPHATASE 87 U/L (38-126); BILIRUBIN,DIRECT 0.6 mg/dL (0.0-0.4); BILIRUBIN,TOTAL 1.1 mg/dL (0.2-1.3); BLOOD UREA NITROGEN 7 mg/dL (7-20); CALCIUM 8.2 mg/dL (8.4-10.2); CARBON DIOXIDE 13 mmol/L (22-30); GLUCOSE 115 mg/dL (75-110); POTASSIUM 3.7 mmol/L (3.6-5.0); TOTAL PROTEIN 6.9 g/dL (6.3-8.2)
[2018-02-28] MEDS ORDERED: RINGERS SOLUTION,LACTATED 1,000 ML IV ONE (05:44)
[2018-02-28 05:45] LABS: CHLORIDE 104 mmol/L (98-107); SODIUM 139.6 mmol/L (137-145)
[2018-02-28 05:46] LABS: ANION GAP 23 (5-19)
[2018-02-28 05:47] LABS: ASPARTATE AMINO TRANSFERASE 70 U/L (14-36)
[2018-02-28 06:03] LABS: APPEARANCE,URINE SLIGHTLY-CLOUDY; BILIRUBIN,URINE NEGATIVE (NEGATIVE); COLOR,URINE YELLOW; GLUCOSE, URINE NEGATIVE (NEGATIVE); KETONES,URINE TRACE mg/dL (NEGATIVE); LEUKOCYTE ESTERASE,URINE NEGATIVE (NEGATIVE); NITRITE,URINE NEGATIVE (NEGATIVE); PROTEIN,URINE 100 mg/dL (NEGATIVE); URINE SPECIFIC GRAVITY 1.015; UROBILINOGEN,URINE NEGATIVE mg/dL (<2.0)
[2018-02-28 06:17] LABS: URINE AMPHETAMINES SCREEN NEGATIVE; URINE BARBITURATES SCREEN NEGATIVE; URINE BENZODIAZEPINES SCREEN NEGATIVE; URINE COCAINE SCREEN NEGATIVE; URINE MARIJUANA (THC) SCREEN NEGATIVE; URINE METHADONE SCREEN NEGATIVE; URINE PHENCYCLIDINE SCREEN NEGATIVE
[2018-02-28 06:25] LABS: MEAN CORPUSCULAR HEMOGLOBIN 28.1 pg (27.0-33.4); MEAN CORPUSCULAR HGB CONC 30.6 g/dL (32.0-36.0); RED BLOOD COUNT 2.17 10^6/uL (3.72-5.28); RED CELL DISTRIBUTION WIDTH 24.4 % (11.5-14.0); WHITE BLOOD COUNT 22.3 10^3/uL (4.0-10.5)
[2018-02-28 06:34] LABS: HEMOGLOBIN 6.1 g/dL (12.0-15.5)
[2018-02-28 06:35] LABS: MEAN CORPUSCULAR VOLUME 92 fl (80-97)
[2018-02-28] MEDS ORDERED: NORMAL SALINE 250 ML IV PRN ×2 (06:41→07:13)
[2018-02-28 06:49] LABS: ABSOLUTE LYMPHOCYTES# (MANUAL) 0.9 10^3/uL (0.5-4.7); ABSOLUTE MONOCYTES # (MANUAL) 0.4 10^3/uL (0.1-1.4); BAND NEUTROPHILS % (MANUAL) 1 % (3-5); BASOPHILS % (MANUAL) 0 % (0-2); EOSINOPHILS % (MANUAL) 0 % (0-6); LYMPHOCYTES % (MANUAL) 4 % (13-45); MONOCYTES % (MANUAL) 2 % (3-13); NUCLEATED RED BLOOD CELLS 3 /100 WBC (0); SEGMENTED NEUTROPHILS % (MAN) 93 % (42-78); TOTAL CELLS COUNTED 100
[2018-02-28 06:51] LABS: TOXIC GRANULATION SLIGHT
[2018-02-28 06:52] LABS: ANISOCYTOSIS 3+; OVALOCYTES SLIGHT; PLATELET COMMENT DECREASED; POIKILOCYTOSIS 1+; POLYCHROMASIA SLIGHT; SCHISTOCYTES SLIGHT; TEAR DROP CELLS SLIGHT
[2018-02-28 06:53] LABS: PLATELET LARGE PRESENT
[2018-02-28 06:54] LABS: PLATELET COUNT 12 10^3/uL (150-450)
--- NOTE | 2018-02-28 06:56 | RADIOLOGY REPORT (SQ) ---
EXAM DESCRIPTION: CT CHEST ANGIOGRAPHY WITHOUT THEN WITH IV CONTRAST COMPLETED DATE/TME: 02/28/2018 06:04 CLINICAL HISTORY: 27 years Female, history of septic emboli Comparison: CR, February 28, 2018, February 02, 2018. Technique: IV contrast. Coronal and sagittal reformat. 3d reconstruction. This exam was performed according to our departmental dose-optimization program, which includes automated exposure control, adjustment of the mA and/or kV according to patient size and/or use of iterative reconstruction technique.[facility]: Dose Right [facility]: CareDose [facility]: Dose Right [facility]: Teradose 4D [facility]: Etherpad LIMITATIONS: None Findings: Occlusive emboli/thrombosis throughout the pulmonary arterial system of the right lower lobe including the right interlobar arteries. Scattered, moderate patchy and airspace opacities of both lungs. Small cystic airspaces of the right lower lobe. Smooth pericardial thickening of moderate attenuation; differential diagnosis includes infectious-idiopathic pericarditis. Moderate mediastinal lymphadenopathy Irregular endplates at the T4-T5 disc with up to 0.2 cm T4 leftward anterolisthesis and moderate surrounding soft tissue swelling. Inferior neck, axillae, mediastinum, lungs, airway, lymphatics, heart, vasculature, upper abdomen, and musculoskeleton appear unremarkable. Impression: 1. Positive for pulmonary embolus. There is occlusive pulmonary arterial emboli throughout the right lower lobe. 2. Multifocal pneumonia pattern. Differential etiologies include infectious, inflammatory, infarct/atelectasis, and neoplastic processes. 3. T4-T5 discitis pattern. Consider laboratory and contrast MRI surveillance. 4. Smooth pericardial thickening of moderate attenuation; differential diagnosis includes infectious-idiopathic pericarditis.
[2018-02-28 07:09] LABS: INTERNATIONAL RATION (INR) 2.13; PROTHROMBIN TIME 24.9 SEC (11.4-15.4)
[2018-02-28 07:10] LABS: FIBRINOGEN 261 mg/dL (209-497); PARTIAL THROMBOPLASTIN TIME 40.8 SEC (23.5-35.8)
[2018-02-28 08:47] VITALS: BP 107/61
[2018-02-28 14:47] LABS: PATH REVIEW PATHOLOGIST REVIEWED
--- NOTE | 2018-03-01 18:16 | EKG REPORT ---
SEVERITY:- ABNORMAL ECG - SINUS TACHYCARDIA NONSPECIFIC ST DEPRESSION : Confirmed by: Carrillo Goodwin 01-Mar-2018 18:15:51
== END 2018-02-28 08:49 | disposition short-term general hospital (02) ==
LOC: ER 04:27
DX: A41.9 Sepsis, unspecified organism (principal); R65.21 Severe sepsis with septic shock; I95.9 Hypotension, unspecified; D65 Disseminated intravascular coagulation [defibrination syndrome]; I26.99 Other pulmonary embolism without acute cor pulmonale; I38 Endocarditis, valve unspecified; T50.901A Poisoning by unspecified drugs, medicaments and biological substances, accidental (unintentional), initial encounter; F11.10 Opioid abuse, uncomplicated; R06.4 Hyperventilation; R11.2 Nausea with vomiting, unspecified; R00.0 Tachycardia, unspecified; Z88.0 Allergy status to penicillin; Z88.2 Allergy status to sulfonamides
CPT/HCPCS: 93005; 99291; 99292; 51702; 96375; 96365; 96367; 96368; 86900; 86901; 36415; 87040; 36430; 86850; 82962; 83615; 85025; 85384; 85610; 85730; 80053; 81001; 84484; 80307; 86920; 83605; 71045; 71275; 93010; 36556; C1751; P9017; P9016; P9035; J3490; J0696; J7030; J7120; J3370